=== PATIENT | female | born 1935 | race Caucasian/White ===

== ENCOUNTER 2019-11-14 09:49 | Emergency (ER) | payer OTHER, MEDICAID ==
[~2019-11-14] VITALS: Ht 157.5 cm; Wt 40.8 kg
[2019-11-14 13:58] LABS: BASOPHIL % 0.3 % (0-2); PLATELET COUNT 188 x10^3mcL (130-400); RED CELL DISTRIBUTION WIDTH 14.2 % (11.5-14.5)
[2019-11-14 14:16] LABS: microscopic required? YES; urine erythrocyte 2+ (NEGATIVE)
[2019-11-14 14:25] LABS: AMPHETAMINE QUAL UR NONE DETECTED (See below)
[2019-11-14 14:29] LABS: CALCIUM 8.1 mg/dL (8.5-10.1); CHLORIDE SERUM 103 mmol/L (98-107); CREATININE SERUM 0.9 mg/dL (0.6-1.0); GLUCOSE SERUM 99 mg/dL (74-106); POTASSIUM SERUM 4.3 mmol/L (3.5-5.1); SODIUM SERUM 135 mmol/L (136-145)
[2019-11-14 14:41] LABS: ALKALINE PHOSPHATASE 66 U/L (46-116); ALT/SGPT 17 U/L (14-59); AST/SGOT 24 U/L (15-37); BILIRUBIN TOTAL 0.2 mg/dL (0.20-1.00); CHOLESTEROL 148 mg/dL (<200); HDL CHOLESTEROL 51 mg/dL (40-60); LIPASE 257 IU/L (73-393)
[2019-11-14 14:55] LABS: ALBUMIN 2.7 g/dL (3.4-5.0); T4(THYROXINE) 4.6 ug/dL (4.7-13.3); TOTAL PROTEIN, SERUM 6.1 g/dL (6.4-8.2)
[2019-11-14 18:46] VITALS: BP 117/50
== END 2019-11-14 18:46 | disposition home or self-care (01) ==
LOC: ED 09:49
PROVIDERS: Emergency Medicine
DX: S01.111A Laceration without foreign body of right eyelid and periocular area, initial encounter (principal); S05.41XA Penetrating wound of orbit with or without foreign body, right eye, initial encounter; S80.11XA Contusion of right lower leg, initial encounter; E46 Unspecified protein-calorie malnutrition; D64.9 Anemia, unspecified; I10 Essential (primary) hypertension; F03.90 Unspecified dementia, unspecified severity, without behavioral disturbance, psychotic disturbance, mood disturbance, and anxiety; Z66 Do not resuscitate; Z95.0 Presence of cardiac pacemaker; Z88.6 Allergy status to analgesic agent; Z88.2 Allergy status to sulfonamides; W18.39XA Other fall on same level, initial encounter; Y93.89 Activity, other specified; Y92.89 Other specified places as the place of occurrence of the external cause; Y99.8 Other external cause status
CPT/HCPCS: 82962; 83880; 90715; G0480; J0696; J2001; J2060; J7060; Q0092